=== PATIENT | male | born 1970 | race Caucasian/White ===

== ENCOUNTER → 2017-07-14 | Outpatient (CLI) | payer OTHER | LOC: LAB 11:54 | DX: R51 Headache (principal); R53.83 Other fatigue ==

== ENCOUNTER 2017-11-26 11:30 | Outpatient (RCR) | payer OTHER | END 2017-11-26 12:00 | disposition home or self-care (01) | LOC: PT 11:30 | DX: G24.3 Spasmodic torticollis (principal) ==

== ENCOUNTER → 2018-03-08 | Outpatient (CLI) | payer OTHER | LOC: RAD 12:31 | DX: M50.322 Other cervical disc degeneration at C5-C6 level (principal); M48.02 Spinal stenosis, cervical region; M48.8X2 Other specified spondylopathies, cervical region; Z88.2 Allergy status to sulfonamides ==

== ENCOUNTER 2019-03-25 08:30 | Outpatient (RCR) | payer OTHER | END 2019-03-25 09:00 | LOC: PT 08:30 | DX: G24.3 Spasmodic torticollis (principal) ==

== ENCOUNTER → 2019-04-27 | Outpatient (CLI) | payer OTHER ==
[2019-04-27 15:01] LABS: EOS # 0.4 (0.04-0.40); EOS % 3.2 % (0.0-4.0); HEMATOCRIT 45.4 % (42.0-52.0); HEMOGLOBIN 14.8 g/dL (13.5-18.0); LYMPH# 2.3 (1.50-4.00); MEAN CELL VOLUME 94 fl (78-100); MEAN CORPUSCULAR HEMOGLOBIN 31 pg (27-31); MEAN CORPUSCULAR HGB CONC 33 g/dL (33-37); MEAN PLATELET VOLUME 9.7 fl (7.4-10.4); MONO # 1.1 (0.20-0.80); PLATELET COUNT 260 K/mm3 (130-400); RED BLOOD COUNT 4.85 M/mm3 (4.20-5.60)
[2019-04-27 15:03] LABS: NEU # 9.1 (1.40-6.50)
[2019-04-27 15:16] LABS: ALBUMIN 4.3 g/dL (3.5-5.0); POTASSIUM 4.4 mmol/L (3.5-5.1)
[2019-04-27 15:17] LABS: CALCIUM 9.8 mg/dL (8.3-10.5)
[2019-04-27 15:18] LABS: TOTAL PROTEIN 7.3 g/dL (6.4-8.3)
[2019-04-27 15:20] LABS: TOTAL BILIRUBIN 0.4 mg/dL (0.2-1.2)
== END ==
LOC: LAB 12:52
PROVIDERS: Nurse Practitioner
DX: M10.072 Idiopathic gout, left ankle and foot (principal)

== ENCOUNTER → 2019-06-27 | Outpatient (CLI) | payer OTHER ==
[2019-06-27 15:37] LABS: CALCIUM 9.4 mg/dL (8.3-10.5); POTASSIUM 4.5 mmol/L (3.5-5.1)
== END ==
LOC: LAB 11:01
PROVIDERS: Family Medicine
DX: M10.9 Gout, unspecified (principal); M25.551 Pain in right hip; M25.552 Pain in left hip

== ENCOUNTER → 2019-07-05 | Outpatient (CLI) | payer OTHER ==
[2019-07-05 16:13] LABS: EOS # 0.3 (0.04-0.40); EOS % 2.8 % (0.0-4.0); HEMOGLOBIN 14.8 g/dL (13.5-18.0); LYMPH# 2.8 (1.50-4.00); MEAN CELL VOLUME 95 fl (78-100); MEAN CORPUSCULAR HEMOGLOBIN 30 pg (27-31); MEAN CORPUSCULAR HGB CONC 32 g/dL (33-37); MEAN PLATELET VOLUME 9.7 fl (7.4-10.4); MONO # 0.9 (0.20-0.80); NEU # 7.8 (1.40-6.50); PLATELET COUNT 278 K/mm3 (130-400); RED BLOOD COUNT 4.87 M/mm3 (4.20-5.60); RED CELL DISTRIBUTION WIDTH 13.6 % (11.5-14.5); WHITE BLOOD COUNT 12.1 K/mm3 (4.8-10.8)
[2019-07-05 16:24] LABS: POTASSIUM 3.9 mmol/L (3.5-5.1)
[2019-07-05 16:25] LABS: CALCIUM 9.3 mg/dL (8.3-10.5)
[2019-07-05 16:27] LABS: TOTAL PROTEIN 6.6 g/dL (6.4-8.3)
[2019-07-05 16:29] LABS: TOTAL BILIRUBIN 0.7 mg/dL (0.2-1.2)
== END ==
LOC: LAB 15:51
PROVIDERS: Nurse Practitioner
DX: J34.89 Other specified disorders of nose and nasal sinuses (principal); R53.83 Other fatigue

== ENCOUNTER → 2019-07-06 | Outpatient (CLI) | payer OTHER | LOC: RAD 09:03 | DX: R51 Headache (principal); Z87.820 Personal history of traumatic brain injury ==

== ENCOUNTER → 2019-08-01 | Outpatient (CLI) | payer OTHER | LOC: LAB 10:02 → RAD 10:02 | DX: M76.61 Achilles tendinitis, right leg (principal); M76.62 Achilles tendinitis, left leg; M10.9 Gout, unspecified ==

== ENCOUNTER 2019-08-11 09:30 | Outpatient (RCR) | payer OTHER | END 2019-08-11 10:00 | disposition still patient (30) | LOC: PT 09:30 | DX: G24.3 Spasmodic torticollis (principal); Z92.29 Personal history of other drug therapy ==

== ENCOUNTER → 2019-10-11 | Outpatient (CLI) | payer OTHER | LOC: RAD 15:29 | DX: M25.462 Effusion, left knee (principal) ==

== ENCOUNTER → 2021-02-28 | Outpatient (CLI) | payer OTHER ==
[2021-02-28 12:01] LABS: POTASSIUM 4.1 mmol/L (3.5-5.1)
[2021-02-28 12:02] LABS: CALCIUM 9.3 mg/dL (8.3-10.5)
== END ==
LOC: LAB 11:32
PROVIDERS: Family Medicine
DX: M10.9 Gout, unspecified (principal); M19.072 Primary osteoarthritis, left ankle and foot

== ENCOUNTER 2021-11-01 09:51 | Emergency (ER) | payer OTHER ==
[~2021-11-01] VITALS: Ht 175.3 cm; Wt 84.1 kg
[2021-11-01] MEDS ORDERED: ALLOPURINOL300 M1 PO (10:13)
[2021-11-01] MEDS ORDERED: MOBIC7.5 MG (10:14)
[2021-11-01] MEDS ORDERED: ALLEGRA D 12 HO1 TER PO (10:14)
[2021-11-01] MEDS ORDERED: NASACORT A55 MCG/Act NS (10:14)
[2021-11-01] MEDS ORDERED: SINGULAIR 110 MG/TAB PO (10:14)
[2021-11-01 10:56] LABS: BASO # 0.05 K/mm3 (0.02-0.10); EOS # 0.51 K/mm3 (0.04-0.40); EOS % 5.9 % (0.0-4.0); HEMATOCRIT 46.6 % (42.0-52.0); HEMOGLOBIN 15.4 g/dL (13.5-18.0); LYMPH# 2.02 K/mm3 (1.50-4.00); MEAN CELL VOLUME 93 fl (78-100); MEAN CORPUSCULAR HEMOGLOBIN 31 pg (27-31); MEAN CORPUSCULAR HGB CONC 33 g/dL (33-37); MEAN PLATELET VOLUME 9.7 fl (7.4-10.4); MONO # 0.82 K/mm3 (0.20-0.80); NEU # 5.28 K/mm3 (1.40-6.50); PLATELET COUNT 245 K/mm3 (130-400); WHITE BLOOD COUNT 8.7 K/mm3 (4.8-10.8)
[2021-11-01 11:06] LABS: ALBUMIN 4.4 g/dL (3.5-5.0); POTASSIUM 4.2 mmol/L (3.5-5.1)
[2021-11-01 11:07] LABS: CALCIUM 9.5 mg/dL (8.3-10.5)
[2021-11-01 11:08] LABS: TOTAL PROTEIN 7.4 g/dL (6.4-8.3)
[2021-11-01 11:10] LABS: TOTAL BILIRUBIN 0.6 mg/dL (0.2-1.2)
[2021-11-01] MEDS ORDERED: PREDNISONE20 MG PO (11:50)
[2021-11-01 12:15] VITALS: BP 134/93
== END 2021-11-01 12:17 | disposition home or self-care (01) ==
LOC: ED 09:51
PROVIDERS: Nurse Practitioner
DX: M10.9 Gout, unspecified (principal); Z79.899 Other long term (current) drug therapy; Z98.890 Other specified postprocedural states

== ENCOUNTER → 2022-03-25 | Outpatient (CLI) | payer OTHER ==
[~2022-03-25] MED LIST: ALLEGRA D 12 HO1 TER PO; ALLOPURINOL300 M1 PO; MOBIC7.5 MG; NASACORT A55 MCG/Act NS; PREDNISONE20 MG PO; SINGULAIR 110 MG/TAB PO
[2022-03-25 15:22] LABS: ALBUMIN 4.3 g/dL (3.5-5.0); POTASSIUM 4.6 mmol/L (3.5-5.1)
[2022-03-25 15:23] LABS: CALCIUM 9.4 mg/dL (8.3-10.5)
[2022-03-25 15:24] LABS: TOTAL PROTEIN 6.8 g/dL (6.4-8.3)
[2022-03-25 15:26] LABS: TOTAL BILIRUBIN 0.4 mg/dL (0.2-1.2)
== END ==
LOC: LAB 11:51
PROVIDERS: Family Medicine
DX: Z13.1 Encounter for screening for diabetes mellitus (principal); Z13.220 Encounter for screening for lipoid disorders; Z12.5 Encounter for screening for malignant neoplasm of prostate; M10.9 Gout, unspecified; M79.671 Pain in right foot